=== PATIENT | female | born 1985 | race Hispanic/Latino ===

== ENCOUNTER 2017-12-01 21:31 | Emergency (ER) | payer SELFPAY ==
--- NOTE | 2017-12-01 22:25 | ER ---
Nurse's Notes [facility] Name: Roseline Alfred Age: 32 yrs Sex: Female : 1985 Arrival Date: 12/01/2017 Time: 21:32 Bed 25 Private MD: Diagnosis: Urticaria Presentation: 12/01 21:48 Presenting complaint: Patient states: "bumps" X2 days with all over body itching. ak1 Transition of care: patient was not received from another setting of care. Onset of symptoms is unknown. Risk Assessment: Do you want to hurt yourself or someone else? Patient reports no desire to harm self or others. Care prior to arrival: None. 21:48 Method Of Arrival: Ambulatory ak1 21:48 Acuity: ALAN 4 ak1 22:36 Initial Sepsis Screen: Does the patient meet any 2 criteria? No. Patient's initial tl3 sepsis screen is negative. Does the patient have a suspected source of infection? No. Patient's initial sepsis screen is negative. Triage Assessment: 22:35 General: Appears in no apparent distress. Behavior is calm, cooperative, appropriate tl3 for age. Pain: Denies pain. 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 - Social history:: Smoking status: Patient uses tobacco products, denies chronic smoking, but will smoke occasionally. - Ebola Screening: : No symptoms or risks identified at this time. Screenin:34 Abuse screen: Denies threats or abuse. Nutritional screening: No deficits noted. tl3 Tuberculosis screening: No symptoms or risk factors identified. Fall Risk None identified. Vital Signs: 21:49 BP 122 / 86; Pulse 75; Resp 16; Temp 98.6(O); Pulse Ox 97% on R/A; Weight 77.56 kg (R); ak1 Height 5 ft. 1 in. (154.94 cm) (R); Pain 0/10; 22:34 BP 125 / 89; Pulse 76; Resp 18; Pulse Ox 100% on R/A; tl3 21:49 Body Mass Index 32.31 (77.56 kg, 154.94 cm) ak1 ED Course: 21:32 Patient arrived in ED. ds1 21:48 Triage completed. ak1 21:49 Arm band placed on Patient placed in waiting room, Patient notified of wait time. ak1 21:58 Jude Lopez MD is Attending Physician. 22:29 Emma Aragon, RN is Primary Nurse. tl3 22:34 Patient has correct armband on for positive identification. Bed in low position. Adult tl3 w/ patient. 22:34 No provider procedures requiring assistance completed. Patient did not have IV access tl3 during this emergency room visit. Administered Medications: No medications were administered Outcome: 22:24 Discharge ordered by . 22:34 Discharged to home ambulatory. tl3 22:34 Condition: good 22:34 Discharge instructions given to patient, Instructed on discharge instructions, follow up and referral plans. medication usage, Demonstrated understanding of instructions, follow-up care, medications, Prescriptions given X 2. 22:36 Patient left the ED. tl3 Signatures: Lanny Salazar ds1 Elissa Baum, RN RN ak1 Jude Lopez MD MD Emma Aragon, RN RN tl3
--- NOTE | 2017-12-02 22:36 | EDPHYS ---
Physician Documentation [facility] Name: Roseline Alfred Age: 32 yrs Sex: Female : 1985 Arrival Date: 12/01/2017 Time: 21:32 Bed 25 Private MD: ED Physician Jude Lopez HPI: 12/02 01:22 This 32 yrs old Female presents to ER via Ambulatory with complaints of Rash, gs Cough. 01:22 The patient's rash thought to be caused by an unknown cause. The rash is located on the gs body diffusely. The rash can be described as urticarial. Onset: The symptoms/episode began/occurred yesterday. Associated signs and symptoms: Pertinent negatives: burning sensation, difficulty breathing, swelling of lips, swelling of throat, swelling of tongue. Severity of symptoms: At their worst the symptoms were moderate in the emergency department the symptoms have resolved. The patient has experienced similar episodes in the past, a few times. The patient has not recently seen a physician. 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 - Social history:: Smoking status: Patient uses tobacco products, denies chronic smoking, but will smoke occasionally. - Ebola Screening: : No symptoms or risks identified at this time. ROS: 12/02 01:22 All other systems are negative. gs Exam: 01:22 Head/Face: Normocephalic, atraumatic. Eyes: Pupils equal round and reactive to light, gs extra-ocular motions intact. Lids and lashes normal. Conjunctiva and sclera are non-icteric and not injected. Cornea within normal limits. Periorbital areas with no swelling, redness, or edema. ENT: Nares patent. No nasal discharge, no septal abnormalities noted. Tympanic membranes are normal and external auditory canals are clear. Oropharynx with no redness, swelling, or masses, exudates, or evidence of obstruction, uvula midline. Mucous membranes moist. Neck: Trachea midline, no thyromegaly or masses palpated, and no cervical lymphadenopathy. Supple, full range of motion without nuchal rigidity, or vertebral point tenderness. No Meningismus. Chest/axilla: Normal chest wall appearance and motion. Nontender with no deformity. No lesions are appreciated. Cardiovascular: Regular rate and rhythm with a normal S1 and S2. No gallops, murmurs, or rubs. Normal PMI, no JVD. No pulse deficits. Respiratory: Lungs have equal breath sounds bilaterally, clear to auscultation and percussion. No rales, rhonchi or wheezes noted. No increased work of breathing, no retractions or nasal flaring. Abdomen/GI: Soft, non-tender, with normal bowel sounds. No distension or tympany. No guarding or rebound. No evidence of tenderness throughout. Back: No spinal tenderness. No costovertebral tenderness. Full range of motion. Skin: Warm, dry with normal turgor. Normal color with no rashes, no lesions, and no evidence of cellulitis. MS/ Extremity: Pulses equal, no cyanosis. Neurovascular intact. Full, normal range of motion. Neuro: Awake and alert, GCS 15, oriented to person, place, time, and situation. Cranial nerves II-XII grossly intact. Motor strength 5/5 in all extremities. Sensory grossly intact. Cerebellar exam normal. Normal gait. 01:22 Constitutional: The patient appears alert, awake. Vital Signs: 12/01 21:49 BP 122 / 86; Pulse 75; Resp 16; Temp 98.6(O); Pulse Ox 97% on R/A; Weight 77.56 kg (R); ak1 Height 5 ft. 1 in. (154.94 cm) (R); Pain 0/10; 22:34 BP 125 / 89; Pulse 76; Resp 18; Pulse Ox 100% on R/A; tl3 21:49 Body Mass Index 32.31 (77.56 kg, 154.94 cm) ak1 MDM: 22:20 Patient medically screened. 12/02 01:22 Differential diagnosis: allergic reaction. Data reviewed: vital signs, nurses notes. Counseling: I had a detailed discussion with the patient and/or guardian regarding: the historical points, exam findings, and any diagnostic results supporting the discharge/admit diagnosis, the need for outpatient follow up. Response to treatment: the patient's symptoms have resolved after treatment, and as a result, I will discharge patient. Administered Medications: No medications were administered Disposition: 12/01/17 22:24 Discharged to Home. Impression: Urticaria. - Condition is Stable. - Prescriptions for Prednisone 20 mg Oral Tablet - take 1 tablet by ORAL route once daily for 5 days; 5 tablet. Zyrtec 10 mg Oral Tablet - take 1 tablet by ORAL route once daily As needed; 20 tablet. - Medication Reconciliation Form, Thank You Letter, Antibiotic Education, Prescription Opioid Use form. - Follow up: Private Physician; When: 2 - 3 days; Reason: Re-evaluation by your physician. Signatures: Elissa Baum RN RN ak1 Jude Lopez MD MD gs Emma Aragon RN RN tl3 Corrections: (The following items were deleted from the chart) 12/01 22:36 22:24 12/01/2017 22:24 Discharged to Home. Impression: Urticaria. Condition is Stable. tl3 Forms are Medication Reconciliation Form, Thank You Letter, Antibiotic Education, Prescription Opioid Use. Follow up: Private Physician; When: 2 - 3 days; Reason: Re-evaluation by your physician.
== END 2017-12-01 22:36 | disposition home or self-care (01) ==
LOC: ER 21:31
DX: L50.9 Urticaria, unspecified (principal); Z72.0 Tobacco use; Z88.0 Allergy status to penicillin
CPT/HCPCS: 99282

== ENCOUNTER 2019-09-28 22:07 | Emergency (ER) | payer SELFPAY ==
--- NOTE | 2019-09-28 23:14 | ER ---
Nurse's Notes [facility] Name: Roseline Alfred Age: 34 yrs Sex: Female : 1985 Arrival Date: 09/28/2019 Time: 22:09 Bed 19 Private MD: Diagnosis: Otitis externa Presentation: 09/27 22:17 Chief complaint: Patient states: Right ear pain x 2 days; Took left over Amoxicillin lp1 medication with no relief. Coronavirus screen: Patient denies a cough. Patient denies shortness of breath or difficulty breathing. Patient denies measured and/or subjective temperature greater than 100.4F prior to today's visit. Patient denies travel on a cruise ship or to a country the [facility] currently lists as an affected area. Patient denies contact with known and/or suspected case of COVID-19. Ebola Screen: No symptoms or risks identified at this time. Risk Assessment: Do you want to hurt yourself or someone else? Patient reports no desire to harm self or others. Onset of symptoms was September 28, 2019. 22:17 Method Of Arrival: Ambulatory lp1 22:17 Acuity: ALAN 4 lp1 22:19 Initial Sepsis Screen: Does the patient meet any 2 criteria? No. Patient's initial lp1 sepsis screen is negative. Does the patient have a suspected source of infection? No. Patient's initial sepsis screen is negative. 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 - Social history:: Smoking status: Patient reports the use of cigarette tobacco products, denies chronic smoking, but will smoke occasionally. Screenin:22 Abuse screen: Denies threats or abuse. Denies injuries from another. Nutritional lp1 screening: No deficits noted. Tuberculosis screening: No symptoms or risk factors identified. Fall Risk None identified. Assessment: 22:25 General: Appears in no apparent distress. Behavior is calm, cooperative, appropriate ll1 for age. Pain: Complains of pain in right ear Quality of pain is described as aching. EENT: see physician note for further assessment details.. Reports pain since right ear pain. 23:11 Reassessment: No changes from previously documented assessment. Patient and/or family ll1 updated on plan of care and expected duration. Pain level reassessed. Patient is alert, oriented x 3, equal unlabored respirations, skin warm/dry/pink. Vital Signs: 22:19 BP 116 / 82; Pulse 83; Resp 16; Temp 98.2(O); Pulse Ox 100% on R/A; Weight 77.11 kg lp1 (R); Height 5 ft. 1 in. (154.94 cm); Pain 3/10; 22:19 Body Mass Index 32.12 (77.11 kg, 154.94 cm) lp1 ED Course: 22:09 Patient arrived in ED. cf2 22:18 Triage completed. lp1 22:19 Arm band placed on right wrist. 1 22:25 Nam Paul MD is Attending Physician. [facility] 22:25 Lori Larson RN is Primary Nurse. 1 22:26 No provider procedures requiring assistance completed. Patient did not have IV access ll1 during this emergency room visit. 22:27 Patient has correct armband on for positive identification. Bed in low position. Call ll1 light in reach. 23:13 Sharla Todd MD is Referral Physician. [facility] Administered Medications: 23:11 Drug: Tylenol #3 (300 mg-30 mg) 2 tabs {Note: RASS 0.} Route: PO; 1 23:21 Follow up: Response: No adverse reaction; Pain is decreased; RASS: Alert and Calm (0) [facility] Outcome: 23:13 Discharge ordered by . [facility] 23:21 Discharged to home ambulatory. ll1 23:21 Condition: stable 23:21 Discharge instructions given to patient, Instructed on discharge instructions, follow up and referral plans. no drinking with medication, no driving heavy equipment, medication usage, Demonstrated understanding of instructions, follow-up care, medications, Prescriptions given X 3. 23:21 Patient left the ED. 1 Signatures: Stacey Arcos RN RN lp1 Gilberto Dunlap cf2 Lori Larson RN RN 1 Nma Paul MD MD [facility] Corrections: (The following items were deleted from the chart) 23:11 23:11 Tylenol #3 (300 mg-30 mg) 2 tabs PO ll1 ll1
--- NOTE | 2019-09-28 23:14 | EDPHYS ---
Physician Documentation [facility] Name: Roseline Alfred Age: 34 yrs Sex: Female : 1985 Arrival Date: 09/28/2019 Time: 22:09 Bed 19 Private MD: ED Physician Nam Paul HPI: 09/27 23:06 This 34 yrs old Female presents to ER via Ambulatory with complaints of Ear mh7 Pain. 23:06 The patient presents with pain, moderate. The complaints affect the right ear. Onset: mh7 The symptoms/episode began/occurred 3 day(s) ago. Modifying factors: The symptoms are alleviated by nothing, the symptoms are aggravated by nothing. Associated signs and symptoms: Pertinent negatives: cough, fever, lightheadedness, nausea, rhinorrhea, sinus trouble, shortness of breath, sore throat, tinnitus, vertigo, vomiting. Severity of symptoms: At their worst the symptoms were moderate today, in the emergency department the symptoms are unchanged. 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 - Social history:: Smoking status: Patient reports the use of cigarette tobacco products, denies chronic smoking, but will smoke occasionally. ROS: 23:06 Constitutional: Negative for fever, chills, and weight loss, Eyes: Negative for injury, mh7 pain, redness, and discharge, Neck: Negative for injury, pain, and swelling, Cardiovascular: Negative for chest pain, palpitations, and edema, Respiratory: Negative for shortness of breath, cough, wheezing, and pleuritic chest pain, Abdomen/GI: Negative for abdominal pain, nausea, vomiting, diarrhea, and constipation, Back: Negative for injury and pain, : Negative for injury, bleeding, discharge, and swelling, MS/Extremity: Negative for injury and deformity, Skin: Negative for injury, rash, and discoloration, Neuro: Negative for headache, weakness, numbness, tingling, and seizure, Psych: Negative for depression, anxiety, suicide ideation, homicidal ideation, and hallucinations, Allergy/Immunology: Negative for hives, rash, and allergies, Endocrine: Negative for neck swelling, polydipsia, polyuria, polyphagia, and marked weight changes, Hematologic/Lymphatic: Negative for swollen nodes, abnormal bleeding, and unusual bruising. Exam: 23:06 Constitutional: This is a well developed, well nourished patient who is awake, alert, mh7 and in no acute distress. Head/Face: Normocephalic, atraumatic. Eyes: Pupils equal round and reactive to light, extra-ocular motions intact. Lids and lashes normal. Conjunctiva and sclera are non-icteric and not injected. Cornea within normal limits. Periorbital areas with no swelling, redness, or edema. 23:06 Neck: Trachea midline, no thyromegaly or masses palpated, and no cervical lymphadenopathy. Supple, full range of motion without nuchal rigidity, or vertebral point tenderness. No Meningismus. Chest/axilla: Normal chest wall appearance and motion. Nontender with no deformity. No lesions are appreciated. Cardiovascular: Regular rate and rhythm with a normal S1 and S2. No gallops, murmurs, or rubs. Normal PMI, no JVD. No pulse deficits. Respiratory: Lungs have equal breath sounds bilaterally, clear to auscultation and percussion. No rales, rhonchi or wheezes noted. No increased work of breathing, no retractions or nasal flaring. Abdomen/GI: Soft, non-tender, with normal bowel sounds. No distension or tympany. No guarding or rebound. No evidence of tenderness throughout. Back: No spinal tenderness. No costovertebral tenderness. Full range of motion. Skin: Warm, dry with normal turgor. Normal color with no rashes, no lesions, and no evidence of cellulitis. MS/ Extremity: Pulses equal, no cyanosis. Neurovascular intact. Full, normal range of motion. Neuro: Awake and alert, GCS 15, oriented to person, place, time, and situation. Cranial nerves II-XII grossly intact. Motor strength 5/5 in all extremities. Sensory grossly intact. Cerebellar exam normal. Normal gait. Psych: Awake, alert, with orientation to person, place and time. Behavior, mood, and affect are within normal limits. 23:06 ENT: External ear(s): are unremarkable, Ear canal(s): swelling, that is moderate, of the right canal, TM's: are normal, Examination of the other ear shows no obvious abnormality, Nose: is normal, Mouth: is normal, Posterior pharynx: is normal, Dental exam: normal, Voice: is normal. Vital Signs: 22:19 BP 116 / 82; Pulse 83; Resp 16; Temp 98.2(O); Pulse Ox 100% on R/A; Weight 77.11 kg lp1 (R); Height 5 ft. 1 in. (154.94 cm); Pain 3/10; 22:19 Body Mass Index 32.12 (77.11 kg, 154.94 cm) lp1 MDM: 23:06 Patient medically screened. [facility] 23:06 Differential diagnosis: otitis media, otitis externa, ruptured TM, foreign body, acute mh7 otalgia, cerumen impaction, barotrauma , serotympanum. Data reviewed: vital signs, nurses notes. Data interpreted: Pulse oximetry: on room air is 100 %. Interpretation: normal. Counseling: I had a detailed discussion with the patient and/or guardian regarding: the historical points, exam findings, and any diagnostic results supporting the discharge/admit diagnosis, the need for outpatient follow up, for definitive care, an ENT specialist, to return to the emergency department if symptoms worsen or persist or if there are any questions or concerns that arise at home. Administered Medications: 23:11 Drug: Tylenol #3 (300 mg-30 mg) 2 tabs {Note: RASS 0.} Route: PO; ll1 23:21 Follow up: Response: No adverse reaction; Pain is decreased; RASS: Alert and Calm (0) ll1 Disposition: 09/28/19 23:13 Discharged to Home. Impression: Otitis externa. - Condition is Stable. - Discharge Instructions: Otitis Externa, [id number]. - Prescriptions for Cortisporin- TC 3.3-3-10-0.5 mg/mL Otic Suspension - instill 4 drop by OTIC route every 6 hours; 1 bottle. Ibuprofen 800 mg Oral Tablet - take 1 tablet by ORAL route every 8 hours As needed take with food; 15 tablet. Tylenol- Codeine #3 300-30 mg Oral Tablet - take 2 tablets by ORAL route every 6 hours As needed; 20 tablet. - Work release form, Medication Reconciliation Form, Thank You Letter, Antibiotic Education, Prescription Opioid Use form. - Follow up: Private Physician; When: 1 - 2 days; Reason: Worsening of condition, Recheck today's complaints, Continuance of care, Re-evaluation by your physician. Follow up: Sharla Todd MD; When: 2 - 3 days; Reason: Worsening of condition, Recheck today's complaints. - Problem is new. - Symptoms have improved. Signatures: Stacey Arcos RN RN lp1 Lori Larson RN RN ll1 Nam Paul MD MD mh7 Corrections: (The following items were deleted from the chart) 23:21 23:13 09/28/2019 23:13 Discharged to Home. Impression: Otitis externa. Condition is ll1 Stable. Forms are Work release form, Medication Reconciliation Form, Thank You Letter, Antibiotic Education, Prescription Opioid Use. Follow up: Private Physician; When: 1 - 2 days; Reason: Worsening of condition, Recheck today's complaints, Continuance of care, Re-evaluation by your physician. Follow up: Sharla Todd; When: 2 - 3 days; Reason: Worsening of condition, Recheck today's complaints. Problem is new. Symptoms have improved. mh7
[2019-09-28] MEDS ORDERED: CODEINE 30MG/APAP 300MG TAB ONE (23:17)
[2019-09-28 23:28] VITALS: BP 116/82; TEMP 98.2; O2SAT 100
== END 2019-09-28 23:21 | disposition home or self-care (01) ==
LOC: ER 22:07
DX: H60.91 Unspecified otitis externa, right ear (principal); F17.210 Nicotine dependence, cigarettes, uncomplicated
CPT/HCPCS: 99283

== ENCOUNTER 2019-10-03 00:14 | Emergency (ER) | payer SELFPAY ==
--- NOTE | 2019-10-03 00:54 | EDPHYS ---
Physician Documentation [facility] Name: Roseline Alfred Age: 34 yrs Sex: Female : 1985 Arrival Date: 10/03/2019 Time: 00:17 Bed 13 Private MD: ED Physician Js Ma HPI: 10/02 00:48 This 34 yrs old Female presents to ER via Ambulatory with complaints of Ear pkl Pain. 00:48 The patient presents with pain, that is acute. The complaints affect the right ear. pkl Onset: The symptoms/episode began/occurred 4 day(s) ago. The patient has been recently seen at the [facility] Emergency Department, this week, for similar complaints. Historical: - Allergies: 00:34 No Known Allergies; sg - PMHx: 00:34 None; sg - PSHx: 00:34 None; sg - Immunization history:: Adult Immunizations up to date. - Social history:: Smoking status: Patient denies any tobacco usage or history of. ROS: 00:48 Eyes: Negative for injury, pain, redness, and discharge. pkl 00:48 ENT: Positive for ear pain. 00:48 Neck: Negative for stiffness. 00:48 Cardiovascular: Negative for chest pain. 00:48 Respiratory: Negative for cough, shortness of breath. 00:48 Abdomen/GI: Negative for abdominal pain, nausea, vomiting, and diarrhea. 00:48 Back: Negative for acute changes. 00:48 : Negative for urinary symptoms. 00:48 MS/extremity: Negative for acute changes. 00:48 Skin: Negative for rash. 00:48 Neuro: Negative for altered mental status. Exam: 00:48 Head/Face: Normocephalic, atraumatic. Eyes: Pupils equal round and reactive to light, pkl extra-ocular motions intact. Lids and lashes normal. Conjunctiva and sclera are non-icteric and not injected. Cornea within normal limits. Periorbital areas with no swelling, redness, or edema. 00:48 ENT: External ear(s): swelling, that is moderate, of the , on the right ear. 00:48 Neck: Exam negative for acute changes. 00:48 Chest/axilla: Exam negative for acute changes. 00:48 Cardiovascular: Rate: normal, Rhythm: regular. 00:48 Respiratory: the patient does not display signs of respiratory distress, Respirations: normal, Breath sounds: are clear throughout. 00:48 Abdomen/GI: Bowel sounds: normal, Palpation: abdomen is soft and non-tender, in all quadrants. 00:48 Back: Exam negative for acute changes. 00:48 : Exam negative for acute changes. 00:48 Musculoskeletal/extremity: Exam is negative for acute changes. 00:48 Skin: Exam negative for rash. 00:48 Neuro: Orientation: is normal, Mentation: is normal, Cranial nerves: grossly normal, Motor: is normal. Vital Signs: 00:29 BP 109 / 79; Pulse 70; Resp 18; Temp 98.7; Pulse Ox 100% on R/A; Pain 10/10; sg MDM: 00:35 Patient medically screened. pkl 00:48 Data reviewed: vital signs, nurses notes. pkl Administered Medications: 00:50 Drug: [place] (7.5 mg-325 mg) 1 tabs Route: PO; sg Disposition: 10/03/19 00:53 Discharged to Home. Impression: Right otitis externa. - Condition is Stable. - Prescriptions for Ultram 50 mg Oral Tablet - take 1 tablet by ORAL route every 8 hours As needed; 15 tablet. Cipro 500 mg Oral Tablet - take 1 tablet by ORAL route every 12 hours for 7 days; 14 tablet. - Medication Reconciliation Form, Thank You Letter, Antibiotic Education, Prescription Opioid Use form. - Follow up: Sharla Todd MD; When: 2 - 3 days; Reason: Re-evaluation by your physician. - Problem is new. - Symptoms are unchanged. Signatures: Laci West RN RN sg Lam, Pin, MD MD pkl Corrections: (The following items were deleted from the chart) 01:01 00:53 10/03/2019 00:53 Discharged to Home. Impression: Right otitis externa. Condition sg is Stable. Forms are Medication Reconciliation Form, Thank You Letter, Antibiotic Education, Prescription Opioid Use. Follow up: Sharla Todd; When: 2 - 3 days; Reason: Re-evaluation by your physician. Problem is new. Symptoms are unchanged. pkl
--- NOTE | 2019-10-03 00:54 | ER ---
Nurse's Notes [facility] Name: Roseline Alfred Age: 34 yrs Sex: Female : 1985 Arrival Date: 10/03/2019 Time: 00:17 Bed 13 Private MD: Diagnosis: Right otitis externa Presentation: 10/02 00:29 Acuity: ALAN 5 sg 00:29 Chief complaint: Patient states: I was seen here two or three days ago for the same sg right ear pain, leila gave me some ear drops and some pain medication but it is not getting any better and I am running out of the medication for pain at home. I still have the ear drops. I did not follow up with any doctor because leila didn't tell me to. Coronavirus screen: Patient denies a cough. Patient denies shortness of breath or difficulty breathing. Patient denies measured and/or subjective temperature greater than 100.4F prior to today's visit. Patient denies travel on a cruise ship or to a country the [facility] currently lists as an affected area. Patient denies contact with known and/or suspected case of COVID-19. Ebola Screen: Patient negative for fever greater than or equal to 101.5 degrees Fahrenheit, and additional compatible Ebola Virus Disease symptoms Patient denies exposure to infectious person. Patient denies travel to an Ebola-affected area in the 21 days before illness onset. No symptoms or risks identified at this time. Initial Sepsis Screen: Does the patient meet any 2 criteria? No. Patient's initial sepsis screen is negative. Does the patient have a suspected source of infection? No. Patient's initial sepsis screen is negative. Risk Assessment: Do you want to hurt yourself or someone else? Patient reports no desire to harm self or others. Onset of symptoms was October 03, 2019. Care prior to arrival: None. 00:29 Method Of Arrival: Ambulatory sg Historical: - Allergies: 00:34 No Known Allergies; sg - PMHx: 00:34 None; sg - PSHx: 00:34 None; sg - Immunization history:: Adult Immunizations up to date. - Social history:: Smoking status: Patient denies any tobacco usage or history of. Vital Signs: 00:29 BP 109 / 79; Pulse 70; Resp 18; Temp 98.7; Pulse Ox 100% on R/A; Pain 10/10; sg ED Course: 00:17 Patient arrived in ED. cf2 00:29 Triage completed. sg 00:29 Arm band placed on. sg 00:34 Laci West RN is Primary Nurse. sg 00:35 Js Ma MD is Attending Physician. pkl 00:53 Sharla Todd MD is Referral Physician. pkl Administered Medications: 00:50 Drug: [place] (7.5 mg-325 mg) 1 tabs Route: PO; sg Outcome: 00:53 Discharge ordered by . pkl 01:01 Patient left the ED. sg Signatures: Laci West RN RN sg Js Ma MD MD pkl Gilberto Dunlap cf2 Corrections: (The following items were deleted from the chart) 00:40 00:29 Chief complaint: Patient states: I was seen here two or three days ago for the sg same ear pain, leila gave me some ear drops and some pain medication but it is not getting any better and I am running out of the medication for pain at home. I still have the ear drops. I did not follow up with any doctor because leila didn't tell me to
[2019-10-03] MEDS ORDERED: HYDROCODONE/APAP 7.5/325 MG TAB ONE (01:07)
[2019-10-03 01:48] VITALS: BP 109/79; TEMP 98.7; O2SAT 100
== END 2019-10-03 01:01 | disposition home or self-care (01) ==
LOC: ER 00:14
DX: H60.91 Unspecified otitis externa, right ear (principal)
CPT/HCPCS: 99282

== ENCOUNTER → 2020-11-20 | Emergency (ER) | payer SELFPAY ==
--- NOTE | 2020-11-20 18:09 | RAD REPORT ---
EXAM DESCRIPTION: RAD - Chest Single View - 11/20/2020 5:06 pm CLINICAL HISTORY: chest pain/SOB COMPARISON: No comparisons FINDINGS: Lines: None. Lungs: Mild to moderate patchy bilateral airspace disease. Pleural: No significant pleural effusions or pneumothorax. Cardiac: The heart size is within normal limits. Bones: No acute fractures. Other: IMPRESSION: Mild to moderate patchy bilateral airspace disease concerning for multifocal pneumonia, including Covid-19.
--- NOTE | 2020-11-22 11:01 | EKG ---
Test Date: 2020-11-20 Test Time: 09:52:35 [employer]itor: HOMERO MEASUREMENT RESULTS: Intervals: Rate: 79 MD: 138 QRSD: 76 QT: 380 QTc: 435 [place]: P: 55 MD: 138 QRS: 6 T: 21 INTERPRETIVE STATEMENTS: Normal sinus rhythm Nonspecific T wave abnormality Abnormal ECG No previous ECG available for comparison Electronically Signed On 11-22-20 10:54:38 CDT by Bhavesh Cast
== END ==
LOC: ER 08:43
DX: U07.1 COVID-19 (principal)
CPT/HCPCS: 71045; 93005; U0003